=== PATIENT | male | born 1930 | race Caucasian/White ===

== ENCOUNTER 2016-02-26 10:16 | Emergency (ER) | payer MEDICARE, OTHER ==
[~2016-02-26] VITALS: Ht 172.7 cm; Wt 71.8 kg
[~2016-02-26 10:16] MED LIST: AC500T PO; AMLO10TA82 PO; APIX5TAB PO; CIPR250T3; DIGO125T PO; FAMO-119 PO; FURO20TA4 PO; HYDR-3702 PO; HYDR-3754 PO; INSU100V2 SC; INSU100V32 SQ; INSU300I SQ; LANTUS SOL100 UNIT/1 SQ; LISI5TAB14 PO; LOSA1TAB19; LOSA1TAB19 PO; LSNP10T PO; METF500T4 PO; METH4TAB27 PO; METO100T PO; METO100T2 PO; MOM10U PO; MULT-954 PO; OXYC1TAB87 PO; PHYT100T PO; POTA20TA15 PO; POTASSIUM CHL; PRAV10TA PO; PRAV40TA2 PO; TAMS0.4C2 PO; WARF2TAB; WARF5TAB; WARF7.5T PO; [UNRECOGNIZED DRUG - CODE] PO
[2016-02-26 10:49] LABS: BASOPHILS % (AUTO) 0 % (0-2); EOSINOPHILS % (AUTO) 1 % (0-4); LYMPHOCYTES # (AUTO) 1.2 X10^3; MEAN CORPUSCULAR HGB CONC 34.7 g/dL (31.0-37.0); MEAN CORPUSCULAR VOLUME 94 FL (80-100); MONOCYTES # (AUTO) 0.1 X10^3; MONOCYTES % (AUTO) 5 % (3-11); NEUTROPHILS # (AUTO) 1.5 X10^3; NEUTROPHILS % (AUTO) 52 % (51-67); PLATELET COUNT 102 10^3uL (150-450); WHITE BLOOD COUNT 2.97 10^3uL (4.0-11.0)
[2016-02-26 10:50] LABS: BILIRUBIN,URINE Negative (Negative); CLARITY,URINE Clear; GLUCOSE, URINE (UA) Negative (Negative); LEUKOCYTE ESTERASE ,URINE Negative (Negative); PH,URINE 5.5 (5.0 - 8.0)
[2016-02-26 10:51] LABS: MEAN CORPUSCULAR HEMOGLOBIN 32.5 PG (26.0-34.0)
[2016-02-26 10:57] LABS: COLOR,URINE Dark Yellow
[2016-02-26 11:00] LABS: ALBUMIN 4.3 g/dL (3.4-5.0); ANION GAP 17.1 MEQ/L (3-15); TOTAL PROTEIN 8.3 g/dL (6.4-8.5)
[2016-02-26 11:06] LABS: URINE CENTRIFUGED VOLUME 12 mL
--- NOTE | 2016-02-26 11:18 | Diagnostic Imaging Report ---
PROCEDURE: CT head without contrast. TECHNIQUE: Multiple contiguous axial images were obtained through the brain without the use of intravenous contrast. INDICATION: Fall with head injury on 02/21/2016. Comparison is made study of 10/24/2015. FINDINGS: Ventricles and sulci are diffusely prominent with persistent low-density within the deep white matter of both hemispheres, greater on the left. No acute hemorrhage is identified. There is no geographic low density to indicate territorial infarct. There is small amount of gas present in the right cavernous sinus. There is questionable irregularity involving the lateral wall of the right sphenoid sinus as well. Otherwise calvarium is intact. Visualized paranasal sinuses are clear. Note is made of mural thickening or debris present within the external auditory canals, greater on the right. IMPRESSION: Senescent findings of brain without CT evidence of acute intracranial abnormality however, gas in the right cavernous sinus could reflect nondisplaced fracture of the sphenoid bone and if indicated, maxillofacial CT with thin section imaging through this region would be of use. Probable cerumen or other debris within the external auditory canals, greater on the right however, clinical correlation is recommended. Dictated by: Dictated on workstation # [id number]
--- NOTE | 2016-02-26 11:19 | Diagnostic Imaging Report ---
INDICATION: Cough, shortness of air. COMPARISON: 11/03/2015. FINDINGS: There is patchy bibasilar airspace disease. Please note the posterior lower lobes are poorly evaluated on portable radiography. Probable small bilateral pleural effusions. No pneumothorax. Previously seen consolidation in right upper lobe has resolved. Stable cardiomegaly. IMPRESSION: 1. Patchy basilar airspace disease with probable small bilateral pleural effusions. This could relate to atelectasis or infectious process, depending on the clinical situation. If it will alter patient management, dedicated PA and lateral views of the chest could better evaluate the lung bases. 2. Stable cardiomegaly. Dictated by: Dictated on workstation # [id number]
[2016-02-26] MEDS ORDERED: SODIUM CHLORIDE FLUSH 3 ML SYR IV ONE (11:20)
[2016-02-26] MEDS ORDERED: SODIUM CHLORIDE FLUSH 10 ML SYR IV PRN (11:20)
--- NOTE | 2016-02-26 11:44 | Diagnostic Imaging Report ---
PROCEDURE: CT maxillofacial without contrast. TECHNIQUE: Multiple contiguous axial images were obtained through the facial bones without the use of intravenous contrast. DATE: February 26, 2016. INDICATION: 85-year-old male status post fall. COMPARISON: CT head of October 24, 2015. FINDINGS: The temporomandibular joints are normally aligned. The mandible is intact. There is no identified displaced nasal bone fracture. There is nonspecific opacification in the right external auditory canal and mild opacification within the left external auditory canal. The mastoid air cells and middle ears are well aerated bilaterally. There is pneumatization of the Abhijit apices. There is no air/fluid level within the paranasal sinuses or paranasal sinus opacification. There is no identified acute maxillofacial bone fracture. The globes appear intact. There is no retro-orbital hematoma. There is chondrocalcinosis and multilevel degenerative changes of the cervical spine. There is a posterior disc/osteophyte complex at C3-C4. There are vascular calcifications. IMPRESSION: 1. No identified acute facial bone fracture. 2. Chondrocalcinosis and advanced degenerative changes of the visualized cervical spine. Dictated by: Dictated on workstation # [id number]
[2016-02-26] MEDS ORDERED: APIX2.5T2 PO (12:17)
[2016-02-26] MEDS ORDERED: DGX.125T PO (12:17)
[2016-02-26] MEDS ORDERED: TAMS-8 PO (12:17)
[2016-02-26] MEDS ORDERED: INSU300I SQ (12:17)
[2016-02-26] MEDS ORDERED: ATOR20TA PO (12:17)
[2016-02-26 12:41] VITALS: BP 153/101
[2016-02-26] MEDS ORDERED: LSNP10T PO (13:09)
[2016-02-26] MEDS ORDERED: BISA10SU6 RC (13:09)
[2016-02-26] MEDS ORDERED: DEXT1DRO8 OU (13:09)
[2016-02-26] MEDS ORDERED: METO50TA7 PO (13:09)
[2016-02-26] MEDS ORDERED: ACET650S13 PR (13:09)
[2016-02-26] MEDS ORDERED: AML5T PO (13:09)
[2016-02-26] MEDS ORDERED: SITA100T PO (13:09)
[2016-02-26] MEDS ORDERED: BRIM10DR OU (13:09)
[2016-02-26] MEDS ORDERED: AC325T PO (13:09)
[2016-04-08] MEDS ORDERED: MELA3TAB34 PO (08:16)
[2016-04-10] MEDS ORDERED: ASP81CT PO (14:38)
== END 2016-02-26 12:42 | disposition home or self-care (01) ==
LOC: EDUNIT# 10:16 → ED 10:18
DX: R41.0 Disorientation, unspecified (principal); Z79.899 Other long term (current) drug therapy; I48.91 Unspecified atrial fibrillation
CPT/HCPCS: 36415; 70450; 70486; 71010; 76376; 80053; 81003; 81015; 82550; 84484; 85025; 85610; 85730; 93005; 96360; 99285; J7030; 93010

== ENCOUNTER 2016-04-07 20:31 | Inpatient (IN) | payer MEDICARE, OTHER ==
[~2016-04-07] VITALS: Ht 172.7 cm; Wt 67.2 kg
[2016-04-07 22:29] LABS: BASOPHILS % (AUTO) 0 % (0-2); EOSINOPHILS % (AUTO) 1 % (0-4); LYMPHOCYTES # (AUTO) 0.9 X10^3; MEAN CORPUSCULAR VOLUME 91 FL (80-100); MEAN PLATELET VOLUME 11.3 FL (6.0-9.5); MONOCYTES # (AUTO) 0.2 X10^3; MONOCYTES % (AUTO) 5 % (3-11); NEUTROPHILS # (AUTO) 1.9 X10^3; NEUTROPHILS % (AUTO) 63 % (51-67); PLATELET COUNT 73 10^3uL (150-450); WHITE BLOOD COUNT 3.09 10^3uL (4.0-11.0)
[2016-04-07 22:32] LABS: MEAN CORPUSCULAR HEMOGLOBIN 32.7 PG (26.0-34.0); MEAN CORPUSCULAR HGB CONC 35.8 g/dL (31.0-37.0)
[2016-04-07 22:39] LABS: ANION GAP 13.5 MEQ/L (3-15)
[2016-04-07 22:40] LABS: ALBUMIN 3.9 g/dL (3.4-5.0); CALCULATED IONIZED CALCIUM 4.1 mg/dL (3.8-4.6); TOTAL PROTEIN 7.6 g/dL (6.4-8.5)
[2016-04-07] MEDS ORDERED: BRIMONIDINE 0.15% OU SCH (23:55)
[2016-04-07] MEDS ORDERED: ACETAMINOPHEN 325 MG TAB (TYLENOL) PO PRN (23:55)
[2016-04-07] MEDS ORDERED: [UNRECOGNIZED DRUG - OTHER] OU PRN (23:55)
[2016-04-07] MEDS ORDERED: [UNRECOGNIZED DRUG - OTHER] SQ SCH (23:55)
[2016-04-07] MEDS ORDERED: HYPROMELLOSE OU PRN (23:55)
[2016-04-07] MEDS ORDERED: DEXTRAN OU PRN (23:55)
[2016-04-07] MEDS ORDERED: INSULIN GLARGINE HUM REC ANLOG 20 UNIT SQ SCH (23:55)
[2016-04-08] VITALS (11 sets, daily range): BP systolic 139–176; BP diastolic 67–97
[2016-04-08] MEDS ORDERED: DEXTROSE 50% 25 GM/50 ML SYRINGE IV PRN
[2016-04-08] MEDS ORDERED: GLUCAGON EMERGENCY 1 MG/KIT IM PRN
[2016-04-08] MEDS ORDERED: DEXTROSE ORAL GEL (GLUTOSE 40%) 15 GM TUBE PO PRN
--- NOTE | 2016-04-08 00:15 | NUR ---
Patient arrives to floor via wheelchair from ED. Able to transfer to weight chair and bed with 1 assistance. Alert, but appears tired and is confused. States that he fell today "at [facility]". No IV in place at time of arrival. 20g started to left forearm on first attempt. Patient able to answer some questions. Others attained from previous admissions. No needs at this time. TABS alarm in place for safety. Will continue to monitor.
[2016-04-08] MEDS ORDERED: SODIUM CHLORIDE FLUSH 10 ML ONE (00:51)
[2016-04-08] MEDS: APIXABAN 2.5 MG (ELIQUIS) TABLET PO SCH ×3 (01:20→21:00)
[2016-04-08] MEDS ORDERED: ARTIFICIAL TEARS (REFRESH) OPHTHALMIC DROPS OU PRN (05:05)
[2016-04-08 06:17] LABS: MEAN CORPUSCULAR VOLUME 92 FL (80-100); MEAN PLATELET VOLUME 11.3 FL (6.0-9.5); PLATELET COUNT 68 10^3uL (150-450); WHITE BLOOD COUNT 3.07 10^3uL (4.0-11.0)
[2016-04-08 06:35] LABS: ANION GAP 12.1 MEQ/L (3-15)
--- NOTE | 2016-04-08 06:37 | NUR ---
Patient remains confused. Has slept since admission and is now sitting in chair watching television. No needs at this time.
[2016-04-08 06:52] LABS: MEAN CORPUSCULAR HEMOGLOBIN 32.6 PG (26.0-34.0); MEAN CORPUSCULAR HGB CONC 35.6 g/dL (31.0-37.0)
[2016-04-08 07:02] LABS: SEGMENTED NEUTROPHILS % 66 % (51-67)
[2016-04-08 07:03] LABS: BAND NEUTROPHILS % 0 % (0-6); EOSINOPHILS % 0 % (0-4); LYMPHOCYTES # 0.8 #; MONOCYTES # 0.2 #; MONOCYTES % 6 % (3-11); TOTAL CELLS COUNTED 100
[2016-04-08 07:11] LABS: RBC MORPH NORMAL (NORMAL)
--- NOTE | 2016-04-08 07:28 | NUR ---
Pt sitting upright in chair, yellow gown in place, tabs alarm in place for pt safety. Pt is oriented to person only. Right side slightly weaker than left with hand auto machinist. Rt side of mouth droops slightly. Left pupil sluggish, Rt pupil reactive to light. Pt had pulled previous 20g IV out of LFA. THis nurse started a new 22g IV in LFA- proximal to last IV site. Wrapped with coban to keep secured. Call light within reach, he is watching tv. Will keep frequent visual monitoring throughout shift.
[2016-04-08] MEDS: INSULIN LISPRO 1 UNIT/0.01 ML (HUMALOG) DOSE SC SCH ×5 (07:30→21:00)
[2016-04-08] MEDS ORDERED: D5 1/2 NS W/KCL 20 MEQ/L 1,000 ML IV SCH (08:05)
--- NOTE | 2016-04-08 08:27 | NUR ---
MED REC COMPLETE--current med list obtained from list provided by [facility].
[2016-04-08] MEDS: meTOproloL SUCCINATE 50 MG (TOPROL XL) TAB PO SCH (08:52)
[2016-04-08] MEDS: TAMSULOSIN 0.4 MG (FLOMAX) CAP PO SCH (08:52)
[2016-04-08] MEDS: ASPIRIN 81 MG CHEW (CHILDREN'S ASA) PO SCH (08:52)
[2016-04-08] MEDS: DIGOXIN 0.125 MG (LANOXIN) TAB PO SCH (08:52)
[2016-04-08] MEDS ORDERED: lisINopril 10 MG (PRINIVIL) TABLET PO SCH (09:00)
[2016-04-08] MEDS ORDERED: NON-FORMULARY MEDICATION 1 EA EA (Sitagliptin Phosphate (Januvia) 100 MG) PO SCH (09:00)
[2016-04-08] MEDS ORDERED: NON-FORMULARY MEDICATION 1 EA EA (Atorvastatin (Lipitor) 20 MG) PO SCH (09:00)
[2016-04-08] MEDS ORDERED: amLODIPine 5 MG (NORVASC) TAB PO SCH (09:00)
[2016-04-08] MEDS: sitaGLIPtin 50 MG (JANUVIA) TAB PO SCH (09:10)
[2016-04-08] MEDS: BRIMONIDINE 0.15% OU SCH ×2 (09:10→21:00)
--- NOTE | 2016-04-08 09:13 | NUR ---
NUTRITION ASSESSMENT Level 1 Patient: Consuelo Flores Age/Sex: 85/M Date Screened: 04-08-16 Weight: 152.6#/69.4 kg Height: 68 inches Primary Diagnosis: CVA Diet Order: NPO Relevant labs: glucose 120, Hgb A1c 7.7, triglycerides 86, cholesterol 131, LDL 80, HDL 34 Food allergies: N Nutrition Assessment Criteria Age over 80: 4 points Body Mass Index (BMI) under 19: N Admission Screening Indicates Risk? 3 points Moderate/High Risk Diagnosis: 6 points TPN or PPN: N NPO or clear liquid diet: Yes Serum Glucose <70 or >180: N Hgb A1c >6.7: 3 points Total: 16 points Risk Screen: __ Patient at low nutritional risk based on available data; reevaluate in 5-7 days __ Patient at moderate nutritional risk based on available data; reevaluate in 3-5 days _X_ Patient at high nutritional risk; complete Nutrition Assessment within 48 hours of admission.
--- NOTE | 2016-04-08 10:48 | NUR ---
KELY contacted [facility] to see if Pt. has skilled days available to him. Pt. was skilled at their facility 11/14/15-01/27/16. Pt. has had 60 days of wellness and therefore has 100 skilled days available to him. KELY informed Dr. Anglin of this.
--- NOTE | 2016-04-08 11:15 | NUR ---
NUTRITION ASSESSMENT Level II Patient: Consuelo Flores Age/Sex: 85/ Date Assessed: 04-08-16 ASSESSMENT Pertinent History: Patient admitted with CVA and screened at high nutritional risk secondary to elderly age, diagnosis, elevated blood sugars and concern for difficulty swallowing. PMHx includes diabetes, West Nile virus, a fib, HTN, hyperlipidemia, prostate cancer and CHF. He lives at the [facility]. Pt. was most recently hospitalized in 2015 during which he had difficulty feeding himself; at that time he weighed 149#. Most recent weight was 157# in 2016. Meds/Nutrition: Lantus, Lipitor, ASA, Januvia, D5 NS w/ KCl, Humalog Weight: 152.6#/69.4 kg Height: 68 inches Body Mass Index (BMI): 23.3 [place] Body Weight : 154#/70 kg % IBW: 99% GASTROINTESTINAL Appetite: unable to assess Diet Order: NPO Unintentional loss of >10 lbs. in 3 months: N Difficult to chew/swallow: possibly Diabetes: Yes Relevant Labs: glucose 120, Hgb A1c 7.7, triglycerides 86, cholesterol 131, LDL 80, HDL 34 Calculations for Nutritional Assessment Estimated calorie needs: 25-28 kcals/kg = 1,725-1,930 kcals Estimated protein needs: 1.0-1.3 g/kg = 69-89 g./day DIAGNOSIS 1. Nutrition Diagnosis: Potential for inadequate intake related to possible dysphagia as evidenced by CVA with concern for swallow ability, currently awaiting clearance by OPERATIONS GENERAL AGENT. NUTRITIONAL INTERVENTION Goal: Patient will receive adequate nutrition to meet his needs. Plan: Will follow up with speech eval when available re: appropriate diet to best meet patients needs. Will also monitor ability to feed himself when diet is advanced; may need OT. MONITORING & EVALUATION __ Monitor patients menu selections __ Monitor patients food intake per nursing notes _X_ Monitor NPO/clear liquid days __ Monitor lab values __ Monitor I&O _X_ Other--monitor swallow ability
--- NOTE | 2016-04-08 15:24 | NUR ---
IVF dc'd per orders at this time. IV PADMINI. Echo in room now.
--- NOTE | 2016-04-08 20:00 | NUR ---
Resting in bed. Is alert and oriented to self. Skin warm and dry. Color pink. Telemetry on and shows a-fib in the 70's. Patient is weak. Has some left sided weakness. Call light within reach.
[2016-04-08] MEDS: ATORVASTATIN 10 MG (LIPITOR) TABLET PO SCH (22:36)
[2016-04-08] MEDS: INSULIN GLARGINE 1 UNIT/0.01ML (LANTUS) DOSE SC SCH (22:43)
[2016-04-09 00:13] VITALS: BP 173/87
[2016-04-09 02:14] VITALS: BP 140/80
[2016-04-09 04:44] VITALS: BP 169/84
[2016-04-09] MEDS: INSULIN LISPRO 1 UNIT/0.01 ML (HUMALOG) DOSE SC SCH ×4 (05:55→21:50)
--- NOTE | 2016-04-09 06:21 | NUR ---
Patient rested well tonight. Patient has gotten out of bed twice to go to the bathroom. Needs assistance with gait belt due to right sided weakness. Needs assist of two, does fairly well. Moves slowly. Does have some right sided weakness, and some facial drooping on right side of face. Call light within reach.
[2016-04-09 07:52] VITALS: BP 169/85
[2016-04-09 11:51] VITALS: BP 149/87
[2016-04-09] MEDS: DIGOXIN 0.125 MG (LANOXIN) TAB PO SCH (12:23)
[2016-04-09] MEDS: meTOproloL SUCCINATE 50 MG (TOPROL XL) TAB PO SCH (12:23)
[2016-04-09] MEDS: sitaGLIPtin 50 MG (JANUVIA) TAB PO SCH (12:23)
[2016-04-09] MEDS: ASPIRIN 81 MG CHEW (CHILDREN'S ASA) PO SCH (12:23)
[2016-04-09] MEDS: APIXABAN 2.5 MG (ELIQUIS) TABLET PO SCH ×2 (12:23→21:48)
[2016-04-09] MEDS: TAMSULOSIN 0.4 MG (FLOMAX) CAP PO SCH (12:23)
[2016-04-09] MEDS: BRIMONIDINE 0.15% OU SCH ×2 (12:27→22:00)
--- NOTE | 2016-04-09 14:47 | NUR ---
MULTIDISCIPLINARY MTG/DR. KAPADIA: Pt. admitted for stroke. This has effected his speech and usage of his right hand. Plan for Pt. to discharge to [facility] Wednesday for skilled care-PT/OT/. KELY will arrange for Pt. discharge on Wednesday.
[2016-04-09 15:35] VITALS: BP 128/70
--- NOTE | 2016-04-09 17:49 | NUR ---
Pt sitting up in chair at this time. Tabs and pressure alarm attached. Pt is alert yet confused, but he remembered his visitors that had visited him within the hour and who they were. Skin warm, dry, intact. Resprs nonlabored, even on RA. Denies needs.
--- NOTE | 2016-04-09 20:00 | NUR ---
Patient resting in recliner chair. Alarms on for safety. Patient is alert and disoriented. Is pleasant and cooperative. Re-oriented. Call light within reach.
[2016-04-09] MEDS: ATORVASTATIN 10 MG (LIPITOR) TABLET PO SCH (21:48)
[2016-04-09] MEDS: INSULIN GLARGINE 1 UNIT/0.01ML (LANTUS) DOSE SC SCH (21:49)
--- NOTE | 2016-04-09 22:00 | NUR ---
Ambulated patient to bathroom using gait belt. Patient is getting a little stronger. Seems to follow commands a little better tonight than last night. Voids without difficulty. Dribbles at times. Wears adult depend. Edel care given. Pressure alarm on for safety. Tabs on for safety. Call light within reach, but does not use call light.
[2016-04-10 00:36] VITALS: BP 145/68
[2016-04-10] MEDS: INSULIN LISPRO 1 UNIT/0.01 ML (HUMALOG) DOSE SC SCH ×4 (06:14→20:53)
--- NOTE | 2016-04-10 06:15 | NUR ---
Rested at long intervals tonight. Patient appears to be getting stronger. Still does not call when needing to get up to use the restroom. Able to ambulate with one assist and gait belt. Takes medications without difficulty. No choking when taking liquids tonight. Still very confused to place and time. Still thinks that he fell in the hospital. This morning thinks that he is in [facility]. Re-oriented. Pleasant. Bed pressure alarm on and tabs alarm on for safety. No discomforts voiced.
--- NOTE | 2016-04-10 07:39 | NUR ---
Patient sitting up in recliner upon shift assessment. Alert and oriented to person, place, and time. Hand credit reference clerk equal. Denies pain, nausea, or distress. HR irregular. Lung sounds CTAB. No edema noted to BLE. Updated on plan of care for shift including continued PT and OT. TABS intact for safety. Call light in reach.
[2016-04-10 07:46] VITALS: BP 153/86
[2016-04-10] MEDS: APIXABAN 2.5 MG (ELIQUIS) TABLET PO SCH ×2 (08:17→20:53)
[2016-04-10] MEDS: sitaGLIPtin 50 MG (JANUVIA) TAB PO SCH (08:17)
[2016-04-10] MEDS: BRIMONIDINE 0.15% OU SCH ×2 (08:17→20:53)
[2016-04-10] MEDS: ASPIRIN 81 MG CHEW (CHILDREN'S ASA) PO SCH (08:17)
[2016-04-10] MEDS: TAMSULOSIN 0.4 MG (FLOMAX) CAP PO SCH (08:17)
[2016-04-10] MEDS: DIGOXIN 0.125 MG (LANOXIN) TAB PO SCH (08:18)
[2016-04-10] MEDS: meTOproloL SUCCINATE 50 MG (TOPROL XL) TAB PO SCH (08:18)
--- NOTE | 2016-04-10 14:42 | NUR ---
Pt. to discharge Wednesday back to [facility] skilled care. Pt. will go back to his same room and report will need to be called to Ext. [phone]. Transportation will be here at 10am to bead picker Pt. KELY contacted Pt. son Wong and updated him on Pt. discharge plans.
[2016-04-10 16:35] VITALS: BP 152/88
--- NOTE | 2016-04-10 18:28 | NUR ---
Uneventful day shift. Patient participates with therapies. Does report mild dizziness with PT but denies distress at this time. Sitting up in recliner watching TV. Denies pain or distress. Yellow gown, TABS, and chair alarm intact for safety. Will continue to monitor.
[2016-04-10] MEDS: ATORVASTATIN 10 MG (LIPITOR) TABLET PO SCH (20:53)
[2016-04-10] MEDS: INSULIN GLARGINE 1 UNIT/0.01ML (LANTUS) DOSE SC SCH (20:53)
[2016-04-11 00:01] VITALS: BP 138/62
--- NOTE | 2016-04-11 06:36 | NUR ---
Patient rests in bed throughout night without needs. Sitting up in chair at this time drinking juice, blood sugar 67. After juice and milk, blood glucose up to 92. No needs at this time.
--- NOTE | 2016-04-11 06:50 | NUR ---
received report from Gregor Cosby RN. Assumed patient care.
--- NOTE | 2016-04-11 07:05 | NUR ---
Patient is sitting up in the recliner at bedside. Patient is alert and oriented to name and place. Lung sounds are clear. Abdomen is soft with hypoactive bowel sounds. Pulses are palpable to all extremities. Patient denied pain and needs.
[2016-04-11 07:52] VITALS: BP 155/87
--- NOTE | 2016-04-11 08:28 | NUR ---
Blood glucose at 0615 was noted as 92. No insulin is being given per [employer]
[2016-04-11] MEDS: BRIMONIDINE 0.15% OU SCH (08:36)
[2016-04-11] MEDS: APIXABAN 2.5 MG (ELIQUIS) TABLET PO SCH (08:36)
[2016-04-11] MEDS: ASPIRIN 81 MG CHEW (CHILDREN'S ASA) PO SCH (08:36)
[2016-04-11] MEDS: meTOproloL SUCCINATE 50 MG (TOPROL XL) TAB PO SCH (08:37)
[2016-04-11] MEDS: DIGOXIN 0.125 MG (LANOXIN) TAB PO SCH (08:37)
[2016-04-11] MEDS: sitaGLIPtin 50 MG (JANUVIA) TAB PO SCH (08:37)
[2016-04-11] MEDS: TAMSULOSIN 0.4 MG (FLOMAX) CAP PO SCH (08:37)
--- NOTE | 2016-04-11 09:37 | NUR ---
Report called to Devora KINCAID at the [facility]. Patient has order for dismissal back to the [facility] this morning.
== END 2016-04-11 09:52 | DRG 65 ==
LOC: ED 20:32 → MED/SURG 23:39
PROVIDERS: ADMIT Family Medicine; ATTEND Family Medicine
DX: I63.9 Cerebral infarction, unspecified (principal); G81.91 Hemiplegia, unspecified affecting right dominant side; Z66 Do not resuscitate; R29.810 Facial weakness; R47.1 Dysarthria and anarthria; E11.9 Type 2 diabetes mellitus without complications; I48.91 Unspecified atrial fibrillation; I11.0 Hypertensive heart disease with heart failure; I50.9 Heart failure, unspecified; E78.5 Hyperlipidemia, unspecified; Z79.02 Long term (current) use of antithrombotics/antiplatelets; Z85.46 Personal history of malignant neoplasm of prostate
CPT/HCPCS: 36415; 70450; 70544; 70553; 80048; 80053; 80061; 80162; 83036; 85007; 85025; 85027; 85610; 92523; 93005; 93010; 93306; 93880; 99282; 99285

== ENCOUNTER → 2016-04-21 | Outpatient (REF) | payer MEDICARE, OTHER | LOC: LAB 15:34 | PROVIDERS: ATTEND Family Medicine | DX: Z12.11 Encounter for screening for malignant neoplasm of colon (principal) ==

== ENCOUNTER → 2016-04-27 | Outpatient (CLI) | payer MEDICARE, OTHER ==
[2016-04-27 10:45] LABS: MEAN CORPUSCULAR HGB CONC 33.3 g/dL (31.0-37.0); MEAN CORPUSCULAR VOLUME 97 FL (80-100); MEAN PLATELET VOLUME 11.4 FL (6.0-9.5); PLATELET COUNT 83 10^3uL (150-450); WHITE BLOOD COUNT 2.21 10^3uL (4.0-11.0)
[2016-04-27 10:49] LABS: MEAN CORPUSCULAR HEMOGLOBIN 32.2 PG (26.0-34.0)
[2016-04-27 10:51] LABS: BAND NEUTROPHILS % 0 % (0-6); EOSINOPHILS % 0 % (0-4); LYMPHOCYTES # 0.9 #; MONOCYTES # 0.1 #; MONOCYTES % 3 % (3-11); RBC MORPH NORMAL (NORMAL); SEGMENTED NEUTROPHILS % 55 % (51-67); TOTAL CELLS COUNTED 100
== END ==
LOC: LAB 10:38
PROVIDERS: ATTEND Internal Medicine Hematology & Oncology
DX: D61.818 Other pancytopenia (principal); D46.21 Refractory anemia with excess of blasts 1
CPT/HCPCS: 36415; 85025